=== PATIENT | female | born 1985 | race Caucasian/White ===

== ENCOUNTER 2017-06-01 17:10 | Emergency (ER) | payer BC ==
[~2017-06-01] VITALS: Ht 157.5 cm; Wt 64.7 kg
[~2017-06-01 17:10] MED LIST: BACTRIM,SEPT1 TABLET PO; MOTRIN600 MG PO; NOHOMEMEDS; SORE THROAT SP177 M1 MM; SUBOXONE 4 MG-1 EACH SL; SUBOXONE PO; ULTRAM50 MG PO
[2017-06-01] MEDS ORDERED: NARCAN4 MG NS (18:34)
[2017-06-01 18:50] VITALS: BP 153/98
== END 2017-06-01 18:58 | disposition home or self-care (01) ==
LOC: EME 17:10
DX: T40.2X1A Poisoning by other opioids, accidental (unintentional), initial encounter (principal); F11.29 Opioid dependence with unspecified opioid-induced disorder; F17.200 Nicotine dependence, unspecified, uncomplicated
CPT/HCPCS: 99281; 99283; J2310

== ENCOUNTER 2017-08-03 20:30 | Emergency (ER) | payer OTHER ==
[~2017-08-03] VITALS: Ht 162.6 cm; Wt 65.7 kg
[~2017-08-03 20:30] MED LIST changes: +NARCAN4 MG NS
[2017-08-03 22:57] VITALS: BP 149/76
== END 2017-08-03 22:59 | disposition home or self-care (01) ==
LOC: EME → EDBD 20:30 → EME 22:59
DX: T40.1X1A Poisoning by heroin, accidental (unintentional), initial encounter (principal); R40.0 Somnolence; F11.90 Opioid use, unspecified, uncomplicated; J45.909 Unspecified asthma, uncomplicated; B19.20 Unspecified viral hepatitis C without hepatic coma; F17.200 Nicotine dependence, unspecified, uncomplicated
CPT/HCPCS: 99281; 99284